=== PATIENT | male | born 1985 | race Caucasian/White ===

== ENCOUNTER 2024-09-11 10:14 | Emergency (ER) | payer OTHER, SELFPAY ==
[2024-09-11] MEDS ORDERED: LIDOCAINE 1% 20 ML MDV ONE (10:28)
[2024-09-11] MEDS ORDERED: DOXYCYCLINE 100 MG CAP PO ONE (10:28)
--- NOTE | 2024-09-11 11:06 | ER ---
Nurse's Notes [facility] Name: Juan Alberto Teresa Age: 38 yrs Sex: Male : 1985 Arrival Date: 09/11/2024 Time: 10:14 Bed 18 Private MD: Diagnosis: Laceration without foreign body of lower leg Presentation: 09/11 10:26 Chief complaint: Patient states: laceration to R hall that occurred just prior to ss arrival after slipping on a rock. Coronavirus screen: Client denies travel out of the [place] in the last 14 days. Ebola Screen: Patient denies exposure to infectious person. Patient denies travel to an Ebola-affected area in the 21 days before illness onset. Complicating Factors: There are no complicating factors for this patient. Initial Sepsis Screen: Does the patient meet any 2 criteria? No. Patient's initial sepsis screen is negative. Does the patient have a suspected source of infection? No. Patient's initial sepsis screen is negative. Risk Assessment: Do you want to hurt yourself or someone else? Patient reports no desire to harm self or others. Onset of symptoms was September 11, 2024. 10:26 Method Of Arrival: Ambulatory ss 10:26 Acuity: RENÉ 4 ss Historical: - Allergies: 10:27 No Known Allergies; ss - Home Meds: 10:27 None [Active]; ss - PMHx: 10:27 None; ss - PSHx: 10:27 None; ss - Immunization history:: Adult Immunizations up to date, Client reports receiving the 2nd dose of the Covid vaccine, Last tetanus immunization: up to date. - Infectious Disease History:: Denies. - Social history:: Smoking status: Patient denies any tobacco usage or history of. Screenin:59 [facility] ED Fall Risk Assessment (Adult) History of falling in the last 3 months, aa5 including since admission Yes- single mechanical fall (1 pt) Confusion or Disorientation No (0 pts) Intoxicated or Sedated No (0 pts) Impaired Gait No (0 pts) Mobility Assist Device Used No (0 pt) Altered Elimination No (0 pt) Score/Fall Risk Level 0 - 2 = Low Risk Oriented to surroundings, Maintained a safe environment, Educated pt \T\ family on fall prevention, incl call for assistance when getting out of bed. Abuse screen: Denies threats or abuse. Nutritional screening: No deficits noted. Tuberculosis screening: No symptoms or risk factors identified. Assessment: 10:30 General: Appears comfortable, Behavior is calm, cooperative. Pain: Complains of pain in aa5 right hall. Neuro: Level of Consciousness is awake, alert, obeys commands, Oriented to person, place, time, situation. Cardiovascular: Patient's skin is warm and dry. Respiratory: Airway is patent Respiratory effort is even, unlabored, Respiratory pattern is regular, symmetrical. GI: No signs and/or symptoms were reported involving the gastrointestinal system. : No signs and/or symptoms were reported regarding the genitourinary system. EENT: No signs and/or symptoms were reported regarding the EENT system. Derm: Skin is pink, warm \T\ dry. Laceration noted to right hall, measuring approximately 3-5 in long, mild bleeding noted. Musculoskeletal: Range of motion: intact in all extremities. 10:53 Reassessment: SEWING MACHINE OPERATOR FLOORPERSON at bedside repairing laceration . aa5 11:35 Reassessment: Patient is alert, oriented x 3, equal unlabored respirations, skin aa5 warm/dry/pink. Vital Signs: 10:26 BP 103 / 64; Pulse 74; Resp 14; Temp 98.2(TE); Pulse Ox 99% on R/A; Weight 77.11 kg; ss Height 5 ft. 11 in. ; 10:26 Body Mass Index 23.71 (77.11 kg, 180.34 cm) ED Course: 10:17 Patient arrived in ED. sj2 10:17 [facility]raz[facility] Tru[facility]C [facility] kb 10:17 Macario Eason MD is Attending Physician. kb 10:27 Triage completed. ss 10:27 Arm band placed on right wrist. ss 10:30 Irene Robertson, NAYELI is Primary Nurse. aa5 10:30 Patient has correct armband on for positive identification. Bed in low position. Call aa5 light in reach. Side rails up X 1. Pulse ox on. NIBP on. 11:35 No provider procedures requiring assistance completed. Patient did not have IV access aa5 during this emergency room visit. 11:35 Dressings: Kerlix X 1; right hall non-adherent dressing x 1 right hall. aa5 Administered Medications: 10:33 Drug: Doxycycline PO 100 mg PO once Route: PO; aa5 11:38 Follow up: Response: No adverse reaction aa5 10:53 Drug: Lidocaine Infiltration (1 %) 1 vials 20 ml Infiltration once; to bedside {Note: aa5 administered by SEWING MACHINE OPERATOR FLOORPERSON during laceration repair. .} Volume: 20 ml; Route: Infiltration; Medication: 11:35 VIS not applicable for this client. aa5 Outcome: 11:05 Discharge ordered by . rainer 11:35 Discharged to home ambulatory, aa5 11:35 Condition: stable 11:35 Discharge instructions given to patient, Instructed on discharge instructions, follow up and referral plans. medication usage, Demonstrated understanding of instructions, follow-up care, medications, Prescriptions given X 1, 11:38 Patient left the ED. aa5 Signatures: Grazyna Truong, BIBI-C FINANCIAL SPECIALIST-Irene Moore, RN RN aa5 Cristina Theodore RN RN ss Diego Dial sj2 Corrections: (The following items were deleted from the chart) 11:00 10:59 [facility] ED Fall Risk Assessment (Adult) History of falling in the last 3 months, aa5 including since admission No falls in past 3 months (0 pts) Confusion or Disorientation No (0 pts) Intoxicated or Sedated No (0 pts) Impaired Gait No (0 pts) Mobility Assist Device Used No (0 pt) Altered Elimination No (0 pt) Score/Fall Risk Level 0 - 2 = Low Risk Oriented to surroundings, Maintained a safe environment, Educated pt \T\ family on fall prevention, incl call for assistance when getting out of bed, aa5
--- NOTE | 2024-09-11 11:07 | EDPHYS ---
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 Denies any other injuries. Historical: - Allergies: 10: No Known Allergies; ss - Home Meds: : None [Active]; ss - PMHx: : None; ss - PSHx: 10: None; ss - Immunization history:: Adult Immunizations up to date, Client reports receiving the 2nd dose of the Covid vaccine, Last tetanus immunization: up to date. - Infectious Disease History:: Denies. - Social history:: Smoking status: Patient denies any tobacco usage or history of. ROS: 11:04 Constitutional: As per HPI kb Exam: 11:04 Constitutional: This is a well developed, well nourished patient who is awake, alert, kb and in no acute distress. Head/Face: Normocephalic, atraumatic. ENT: Moist Mucous membranes Cardiovascular: Regular rate Respiratory: Respirations even and unlabored. No increased work of breathing. Talking in full sentences MS/ Extremity: Pulses equal, no cyanosis. Neurovascular intact. Full, normal range of motion. Neuro: Awake and alert, GCS 15, oriented to person, place, time, and situation. 11:04 Skin: injury, laceration(s), the wound is approximately 6 cm(s), of the right hall, that can be described as clean, no foreign body, linear, without bleeding, Vital Signs: 10: BP 103 / 64; Pulse 74; Resp 14; Temp 98.2(TE); Pulse Ox 99% on R/A; Weight 77.11 kg; ss Height 5 ft. 11 in. ; 10: Body Mass Index 23.71 (77.11 kg, 180.34 cm) ss Laceration: 11:03 Wound Repair of 6cm ( 2.4in ) subcutaneous laceration to right hall. Linear shaped.. kb Distal neuro/vascular/tendon intact. Anesthesia: Wound infiltrated with 5 mls of 1% lidocaine. Wound prep: Extensive cleansing with hibiclenz by me, Wound irrigation with saline by me. Skin closed with 7 4-0 Prolene using 5 cruciate knots, 2 simple sutures. Patient tolerated well. MDM: 10:17 Medical Screening Exam initiated kb 11:04 Differential diagnosis: superficial laceration, tendon injury, vascular injury. Data kb reviewed: vital signs, nurses notes. Counseling: I had a detailed discussion with the patient and/or guardian regarding the historical points, exam findings, and any diagnostic results supporting the discharge/admit diagnosis, the need for outpatient follow up, a family practitioner, to return to the emergency department if symptoms worsen or persist or if there are any questions or concerns that arise at home. 09/11 10:21 Order name: Dressing - Wound; Complete Time: 11:38 kb 09/11 10:21 Order name: Gloves, Sterile; Complete Time: 10:52 kb 09/11 10:21 Order name: Prolene, Sutures; Complete Time: 10:52 kb 09/11 10:21 Order name: Setup Suture Tray; Complete Time: 10:52 kb Administered Medications: 10:33 Drug: Doxycycline PO 100 mg PO once Route: PO; aa5 11:38 Follow up: Response: No adverse reaction aa5 10:53 Drug: Lidocaine Infiltration (1 %) 1 vials 20 ml Infiltration once; to bedside {Note: aa5 administered by [employer] during laceration repair. .} Volume: 20 ml; Route: Infiltration; Disposition Summary: 09/11/24 11:05 Discharge Ordered Notes: Location: Home kb Condition: Stable kb Diagnosis - Laceration without foreign body of lower leg kb Followup: kb - With: Emergency Department - When: As needed - Reason: Worsening of condition Followup: kb - With: Private Physician - When: 2 - 3 days - Reason: Recheck today's complaints, Continuance of care, Re-evaluation by your physician Discharge Instructions: - Discharge Summary Sheet kb - Laceration Care, Adult, [id number] kb Forms: - Work release form kb - Medication Reconciliation Form kb - Antibiotic Education kb - Prescription Opioid Use kb - Patient Portal Instructions kb - Leadership Thank You Letter kb Prescriptions: - Doxycycline Hyclate 100 mg Oral Tablet - take 1 tablet ORAL route every 12 hours; 20 tablet; Refills: 0, Product kb Selection Permitted Signatures: Grazyna Truong FNP-C FNP-Ckb Calderon, Audri, RN RN aa5 Cristina Theodore RN RN ss
[2024-09-11 20:56] VITALS: BP 103/64; TEMP 98.2; O2SAT 99
== END 2024-09-11 11:38 | disposition home or self-care (01) ==
LOC: ER 10:14
DX: S81.811A Laceration without foreign body, right lower leg, initial encounter (principal)
CPT/HCPCS: 12032; 99284; J2003